=== PATIENT | male | born 1950 | race Caucasian/White ===

== ENCOUNTER 2024-06-02 04:50 | Emergency (ER) | payer MEDICARE, SELFPAY ==
[2024-06-02 04:53] VITALS: BP 125/79
[2024-06-02 04:55] VITALS: BP 125/79
[2024-06-02 05:00] VITALS: BP 123/75
[2024-06-02 05:03] VITALS: BMI 27.5
[2024-06-02] MEDS: ANTIVERT 25 MG PO (05:23)
[2024-06-02] MEDS: NSS 1000 IV (05:24)
[2024-06-02 05:25] LABS: % Basophils 0.8 % (0-2); % Eosinophils 7.3 % (0-6); % Immature Granulocytes 0.3 % (0-0.5); % Lymphocytes 31.7 % (20.5-51.1); % Neutrophils 46.9 % (42.2-75.2); Absolute Basophils 0.1 10^3/uL (0-0.2); Absolute Eosinophils 0.5 10^3/uL (0-0.7); Absolute Lymphocytes 2.1 10^3/uL (1.2-3.4); Absolute Monocytes 0.9 10^3/uL (0.1-0.6); Absolute Neutrophils 3.1 10^3/uL (1.4-6.5); Hematocrit 45.4 % (39.0-52.0); Mean Corpuscular Hgb 30.7 pg (27.0-31.0); Mean Platelet Volume 9.7 fL (7.4-10.4); Nucleated Red Blood Cells % 0 % (-); Platelet Count 271 10^3/uL (130-400); Red Blood Cell Count 4.88 10^6/uL (4.70-6.10); Red Cell Dist. Width 12.5 % (11.5-14.5); White Blood Cell Count 6.5 10^3/uL (4.8-10.8)
--- NOTE | 2024-06-02 05:30 | ED.GENMED ---
History of Present Illness
General
Chief Complaint: Abdominal Symptoms
Source: patient, spouse and ambulance crew
Exam Limitations: none
Time Seen by Provider: 06/02/24 04:59
Nursing documentation reviewed up to this point in time: agreed with
History of Present Illness
History of Present Illness:
73-year-old male past medical history of hypertension hyperlipidemia presenting to the emergency department today with concerns of abrupt onset of nausea and dizziness upon awakening a few hours prior to arrival. Similar episode yesterday that
lasted roughly 1 hour. [place] off balance when trying to walk as well. Denies any numbness weakness head pain neck pain change in vision.
Past History
Past History
ED Past Medical History: HTN
ED Past Surgical History: Other (liver xplant)
Social History
Alcohol: None
Personal:
Living: with family
Review of Systems
Review of Systems
Allergies reviewed?: Yes
All Other Systems: ROS reviewed and negative except as documented in HPI and ROS
Phy Exam
Physical Exam
Physical Exam:
GENERAL: Alert , in no apparent distress
EYE: pupils equal and reactive
NECK: Supple, no significant adenopathy.
ENT: o/p clr, mmm.
CARDIAC: Regular rate and rhythm .
LUNGS: Clear breath sounds bilaterally, no acute respiratory distress, no wheezes/rales/rhonchi
ABDOMEN: Soft, without focal tenderness, no r/g, no cvat
NEUROLOGICAL: Alert and oriented, no focal neuro deficits 5 out of 5 upper and lower extremity strength normal sensation with palpating bilaterally normal finger-nose and [id number] no pronator drift
SKIN: Warm and dry, skin intact.
MUSCULOSKELETAL: No edema, well perfused.
PSYCH: Normal and appropriate interaction.
Course
Orders/Labs/Results
Orders:
Orders
06/02/24 04:54
Electrocardiogram (*1) Urgent
Reason for Study: Vertigo / Dizzy
06/02/24 04:55
EKG- Treatment ONCE
06/02/24 04:59
Complete Blood Count/With Diff Urgent
Comprehensive Metabolic Panel Urgent
Lipase Urgent
Troponin I Urgent
06/02/24 05:19
CT Head W/o Iv Contrast Urgent
Comment:
Reason For Exam: balance issue this am
0.9% Sodium Chloride 1000 ml [Nss] 1,000 ml IV BOLUS
Meclizine [Antivert] 25 mg PO NOW STA
Abnormal Lab Results
06/02/24
04:59
Absolute Monos (auto) 0.9 H 10^3/uL
(0.1-0.6)
Monocytes % 13.0 H %
(1.7-9.3)
Eosinophils % 7.3 H %
(0-6)
Chloride 111 H mmol/L
(98-107)
Glucose 121 H mg/dl
(70-99)
06/02/24 04:59
06/02/24 04:59
Vital Signs
Initial and Last Documented VS:
Initial Vital Signs
BP
125/79
06/02/24 04:53
Last Documented Vital Signs
Temp Pulse Resp BP Pulse Ox
97.7 F 55 15 121/75 95
06/02/24 04:55 06/02/24 06:45 06/02/24 06:45 06/02/24 06:00 06/02/24 06:15
MDM/Problems Addressed
MDM/Problems Addressed:
73-year-old male presenting to the emergency department today with concerns of abrupt onset nausea dizziness this morning just prior to arrival. EMS was called Zofran given with some improvement in on arrival. Had similar episode yesterday during
the day lasted for roughly an hour and then resolved. On arrival here vital signs are normal patient no distress normal neurologic evaluation. Symptoms do not seem to be consistent with central process likely peripheral vertigo stable for close
outpatient follow-up. Return precautions given.
*Critical Care Note
Total Time (30-74mins, 75-104mins- exclusive of procedures): Not Applicable
ED Attending Note
-
Portions of this chart may have been created with voice recognition software.� Occasional wrong word or��sound alike� substitutions may have occurred due to the inherent limitations of voice recognition software.
Discharge Plan
Departure
Patient Disposition: Home (Routine Discharge)
Date of Disposition: 06/02/24
Time of Disposition: 06:29
Patient with high blood pressure during this ER visit?: No
Condition: Good
Covid-19: Not Applicable
Discharge Problem:
Vertigo
Instructions: Vertigo (a type of dizziness)
Prescriptions:
New
meclizine 25 mg tablet
25 mg PO BID PRN (Reason: dizziness) Qty: 7 0RF
No Action
prednisone 50 MG tablet
50 mg PO DAILY Qty: 5 0RF
albuterol sulfate [Albuterol Sulfate HFA] 18 GM HFA aerosol inhaler
18 gm inhalation Q4 Qty: 1 0RF
promethazine-codeine 5 ML syrup
5 ml PO Q4HPRN PRN (Reason: cough) Qty: 10 0RF
albuterol sulfate 2.5 MG/3 ML solution for nebulization
2.5 mg inhalation R Q4HPRN PRN (Reason: wheezing) Qty: 30 0RF
prednisone 10 MG tablet
10 mg PO .TAPER Qty: 45 0RF
Rx Instructions:
Take 50mg daily x3days, 40mg daily x3days,
30mg daily x3days, 20mg daily x3days,
10mg daily x3days
doxycycline hyclate 100 MG capsule
100 mg PO Q12 Qty: 20 0RF
cyclobenzaprine 10 mg tablet
10 mg PO TID PRN (Reason: muscle spasm) Qty: 10 0RF
prednisone 10 mg Tablet
See Rx Instructions .ROUTE .COMPLEX Qty: 30 0RF
Rx Instructions:
Take By Mouth:
40 mg daily x3 days, 30 mg daily x3 days,
20 mg daily x3 days, 10 mg daily x3 days.
Referrals:
Lionel Langley MD [Active] - Follow up in 5-7 days
UNKNOWN - PT DOES,NOT KNOW [Family Provider] -
Activity Restrictions/Additional Instructions:
You came to the emergency department today for concerns of dizziness. Here you had a reassuring assessment. Please follow-up closely with the ENT. Return for any worsening, new or concerning symptoms.
Interventions
Interventions:
*Risk Screen - Suicide Last Done: 06/02/24 04:55
*General Assessment Last Done: 06/02/24 04:55
*Neglect/Abuse Screening Last Done: 06/02/24 04:55
*ED- Fall Risk Assessment Last Done: 06/02/24 05:03
*ED COVID-19 Vaccine History Last Done: 06/02/24 05:03
*Nursing Disposition Last Done: 06/02/24 07:14
EH-Wiiosw-Dkqhjfglxe Assessment Last Done: 06/02/24 05:03
Discharge Date and Time
Discharge Date/Time: 06/02/24 07:17
Print Language: BANGLADESHI
[2024-06-02 05:42] LABS: ALT (SGPT) 28 U/L (0-50); AST (SGOT) 29 U/L (17-59); Alkaline Phosphatase 63 U/L (38-126); Blood Urea Nitrogen 16 mg/dl (9-20); Calcium 9.2 mg/dl (8.4-10.2); Carbon Dioxide 23 mmol/L (22-30); Chloride 111 mmol/L (98-107); Estimated Creatinine Clearance 105 ml/min; Glucose 121 mg/dl (70-99); Lipase 177 U/L (23-300); Potassium 4.4 mmol/L (3.5-5.1); Sodium 143 mmol/L (135-145); Total Bilirubin 0.6 mg/dl (0.2-1.3); Total Protein 6.4 g/dl (6.3-8.2); eGFR > 60.00
[2024-06-02 06:00] VITALS: BP 121/75
[2024-06-02 06:14] LABS: Troponin I < 0.012 ng/ml
== END 2024-06-02 07:17 | disposition home or self-care (01) ==
LOC: EMR 04:50
PROVIDERS: EMERGENCY PHYSICIAN Emergency Medicine
DX: R42 Dizziness and giddiness (principal); R11.0 Nausea; I10 Essential (primary) hypertension; E78.00 Pure hypercholesterolemia, unspecified
CPT/HCPCS: 99284; 70450; 80053; 83690; 84484; 85025; 93005

== ENCOUNTER 2024-07-28 10:10 | Outpatient (RCR) | payer MEDICARE, SELFPAY | END 2024-07-28 23:59 | disposition home or self-care (01) | LOC: RPT 10:10 | PROVIDERS: ATTENDING PHYSICIAN Internal Medicine | DX: R42 Dizziness and giddiness (principal); Z73.6 Limitation of activities due to disability | CPT/HCPCS: 97112; 97163 ==

== ENCOUNTER 2024-08-19 06:17 | Day surgery (SDC) | payer MEDICARE, SELFPAY | END 2024-08-19 10:58 | disposition home or self-care (01) | LOC: GI 06:17 | PROVIDERS: ATTENDING PHYSICIAN Internal Medicine Gastroenterology | DX: Z12.11 Encounter for screening for malignant neoplasm of colon (principal); K64.8 Other hemorrhoids; K57.30 Diverticulosis of large intestine without perforation or abscess without bleeding; D12.2 Benign neoplasm of ascending colon; D12.4 Benign neoplasm of descending colon; K63.5 Polyp of colon; Z86.0100 Personal history of colon polyps, unspecified | CPT/HCPCS: 45385; 88305 ==